=== PATIENT | female | born 1995 | race Two or more races ===

== ENCOUNTER 2021-08-02 11:05 | Emergency (ER) | payer MEDICAID ==
[~2021-08-02] VITALS: Ht 170.2 cm; Wt 72.6 kg
[2021-08-02 11:30] VITALS: BP 107/75
== END 2021-08-02 16:12 | disposition left against medical advice (07) ==
LOC: ER 11:05
DX: H57.13 Ocular pain, bilateral (principal); Z53.21 Procedure and treatment not carried out due to patient leaving prior to being seen by health care provider